=== PATIENT | male | born 1975 | race African-American/Black ===

== ENCOUNTER 2017-12-05 12:55 | Emergency (ER) | payer SELFPAY ==
[~2017-12-05] VITALS: Ht 193 cm; Wt 102.0 kg
[~2017-12-05 12:55] MED LIST: AUGMENTIN875TAB PO; CIPROFLOXACN500 MG PO; IMODIUM2 MG PO; ULTRAM50 MG PO; ZOFRAN4 MG/TAB PO
[2017-12-05] MEDS ORDERED: TORADOL PO (15:09)
[2017-12-05] MEDS ORDERED: FLEXERIL PO (15:09)
[2017-12-05 15:15] VITALS: BP 167/84
== END 2017-12-05 15:15 | disposition home or self-care (01) | DRG 563 ==
LOC: ED 12:55
DX: S39.012A Strain of muscle, fascia and tendon of lower back, initial encounter (principal); F17.210 Nicotine dependence, cigarettes, uncomplicated; X58.XXXA Exposure to other specified factors, initial encounter

== ENCOUNTER 2019-02-27 05:18 | Emergency (ER) | payer SELFPAY ==
[~2019-02-27] VITALS: Ht 188 cm; Wt 163.4 kg
[~2019-02-27 05:18] MED LIST changes: +FLEXERIL PO; +TORADOL PO
[2019-02-27] MEDS ORDERED: MOTRIN400 MG PO (08:48)
[2019-02-27 08:57] VITALS: BP 157/79
== END 2019-02-27 09:06 | disposition home or self-care (01) | DRG 538 ==
LOC: ED 05:18
DX: S76.011A Strain of muscle, fascia and tendon of right hip, initial encounter (principal); M25.551 Pain in right hip; M79.18 Myalgia, other site

== ENCOUNTER 2019-05-15 16:26 | Emergency (ER) | payer SELFPAY ==
[~2019-05-15] VITALS: Ht 188 cm; Wt 143.2 kg
[~2019-05-15 16:26] MED LIST changes: +MOTRIN400 MG PO
[2019-05-15] MEDS ORDERED: FLEXERIL5 MG PO (19:01)
[2019-05-15 19:05] VITALS: BP 148/88
== END 2019-05-15 19:05 | disposition home or self-care (01) ==
LOC: ED 16:26
DX: S46.912A Strain of unspecified muscle, fascia and tendon at shoulder and upper arm level, left arm, initial encounter (principal); F17.210 Nicotine dependence, cigarettes, uncomplicated; X58.XXXA Exposure to other specified factors, initial encounter

== ENCOUNTER 2019-11-12 | Emergency (ER) | payer SELFPAY ==
[~2019-11-12] MED LIST changes: +FLEXERIL5 MG PO
[2019-11-12 12:10] LABS: URINE BILIRUBIN - DIPSTICK NEGATIVE (NEGATIVE); URINE BLOOD DIPSTICK MODERATE (NEGATIVE); URINE COLOR YELLOW; URINE GLUCOSE - DIPSTICK NEGATIVE (NEGATIVE); URINE KETONE NEGATIVE (NEGATIVE); URINE LEUK ESTERASE NEGATIVE (NEGATIVE); URINE NITRITE - DIPSTICK NEGATIVE (Negative); URINE PH 5.5 (4.5-8.0); URINE PROTEIN - DIPSTICK NEGATIVE (NEG-TRACE); URINE SPECIFIC GRAVITY >=1.030; URINE UROBILINOGEN - DIPSTICK 0.2 E.U./dL (0.2)
[2019-11-12 12:13] LABS: URINE MUCUS FEW hpf (NONE-FEW)
== END 2019-11-12 13:09 | disposition home or self-care (01) | DRG 951 ==
DX: Z03.89 Encounter for observation for other suspected diseases and conditions ruled out (principal); F17.210 Nicotine dependence, cigarettes, uncomplicated

== ENCOUNTER 2020-02-06 04:12 | Emergency (ER) | payer SELFPAY ==
[2020-02-06] MEDS ORDERED: CEPHALEXIN500 MG PO (04:53)
[2020-02-06] MEDS ORDERED: MEDDOSEPAK PO (04:53)
[2020-02-06] MEDS ORDERED: BENADRYL 50MG C50 MG PO (04:53)
[2020-02-06 06:00] VITALS: BP 154/90
== END 2020-02-06 06:00 | disposition home or self-care (01) | DRG 916 ==
LOC: ED 04:12
DX: T78.3XXA Angioneurotic edema, initial encounter (principal); S00.262A Insect bite (nonvenomous) of left eyelid and periocular area, initial encounter; L08.9 Local infection of the skin and subcutaneous tissue, unspecified; F17.210 Nicotine dependence, cigarettes, uncomplicated; W57.XXXA Bitten or stung by nonvenomous insect and other nonvenomous arthropods, initial encounter

== ENCOUNTER 2020-12-27 | Emergency (ER) | payer SELFPAY ==
[~2020-12-27] MED LIST changes: +BENADRYL 50MG C50 MG PO; +CEPHALEXIN500 MG PO; +MEDDOSEPAK PO
[2020-12-27] MEDS ORDERED: TRAMADOL HYDROC50 M1 PO (17:55)
== END 2020-12-27 18:10 | disposition home or self-care (01) | DRG 563 ==
PROC: 2W3QX1Z Immobilization of Right Lower Leg using Splint (ICD-10-PCS; principal; 2020-12-27)
DX: S82.64XA Nondisplaced fracture of lateral malleolus of right fibula, initial encounter for closed fracture (principal); I10 Essential (primary) hypertension; F17.210 Nicotine dependence, cigarettes, uncomplicated; X50.0XXA Overexertion from strenuous movement or load, initial encounter; Y93.01 Activity, walking, marching and hiking; Y92.480 Sidewalk as the place of occurrence of the external cause

== ENCOUNTER 2021-04-01 02:05 | Emergency (ER) | payer BC ==
[~2021-04-01] VITALS: Ht 190.5 cm; Wt 154.0 kg
[~2021-04-01 02:05] MED LIST changes: +TRAMADOL HYDROC50 M1 PO
[2021-04-01] MEDS ORDERED: [UNRECOGNIZED DRUG - REMARK] (02:41)
[2021-04-01 03:13] LABS: HEMATOCRIT 43.1 % (39.0-50.0); HEMOGLOBIN 13.1 g/dl (14.0-18.0); IMMATURE GRANULOCYTES 0.4 % (0.0-5.0); MEAN CELL VOLUME 81.6 fL CALC (80.0-100.0); MEAN CORPUSCULAR HGB 24.8 pG CALC (26.0-32.0); MEAN CORPUSCULAR HGB CONC 30.4 g/dL CAL (32.0-36.0); NEUT# 7.14 thou/uL (1.82-7.42); RED BLOOD COUNT 5.28 mill/uL (4.70-6.10); RED CELL DISTRI WIDTH 15.2 % (11.5-15.5)
[2021-04-01 03:33] LABS: ALBUMIN 3.6 g/dL (3.2-5.0); ALKALINE PHOSPHATASE 86 u/l (38-126); AMYLASE 128 u/l (30-110); BUN 14 mg/dL (9-20); BUN/CREATININE RATIO 16 (12-20 (CALC)); CHLORIDE 99 mmol/l (95-108); CREATININE 0.8 mg/dL (0.7-1.3); GFR > 60 ML/MIN (>=60 (CALC)); GFR FOR AFR.AMER. > 60 ML/MIN (>=60 (CALC)); LIPASE 408 u/l (23-300); POTASSIUM 3.8 mmol/l (3.5-5.1); SODIUM 136 mmol/l (137-146); TOTAL PROTEIN 7.4 g/dL (6.3-8.2)
[2021-04-01 03:35] LABS: ANION GAP 8 (6-22 (CALC)); BILIRUBIN, TOTAL 0.8 mg/dL (0.0-1.4); CARBON DIOXIDE 33 mmol/l (22-30); SGOT/AST 400 u/l (17-59)
[2021-04-01 03:46] LABS: MYOGLOBIN 44 ng/mL (0 - 121)
[2021-04-01 07:03] VITALS: BP 143/79
[2021-04-01] MEDS ORDERED: PRILOSEC20 MG/CAP PO (07:06)
== END 2021-04-01 07:11 | disposition home or self-care (01) | DRG 440 ==
LOC: ED 02:05
PROVIDERS: Family Medicine
DX: K85.90 Acute pancreatitis without necrosis or infection, unspecified (principal); I10 Essential (primary) hypertension
CPT/HCPCS: Q9967

== ENCOUNTER 2021-10-13 08:11 | Emergency (ER) | payer OTHER ==
[~2021-10-13] VITALS: Ht 190.5 cm; Wt 160.0 kg
[~2021-10-13 08:11] MED LIST changes: +PRILOSEC20 MG/CAP PO; +[UNRECOGNIZED DRUG - REMARK]
[2021-10-13 09:10] LABS: URINE BILIRUBIN - DIPSTICK NEGATIVE (NEGATIVE); URINE BLOOD DIPSTICK LARGE (NEGATIVE); URINE COLOR YELLOW; URINE GLUCOSE - DIPSTICK NEGATIVE (NEGATIVE); URINE KETONE NEGATIVE (NEGATIVE); URINE LEUK ESTERASE NEGATIVE (NEGATIVE); URINE NITRITE - DIPSTICK NEGATIVE (Negative); URINE PROTEIN - DIPSTICK NEGATIVE (NEG-TRACE); URINE SPECIFIC GRAVITY >=1.030; URINE UROBILINOGEN - DIPSTICK 0.2 E.U./dL (0.2)
[2021-10-13 10:20] LABS: HEMATOCRIT 45.5 % (39.0-50.0); HEMOGLOBIN 13.6 g/dl (14.0-18.0); IMMATURE GRANULOCYTES 0.6 % (0.0-5.0); MEAN CELL VOLUME 82.4 fL CALC (80.0-100.0); MEAN CORPUSCULAR HGB 24.6 pG CALC (26.0-32.0); MEAN CORPUSCULAR HGB CONC 29.9 g/dL CAL (32.0-36.0); NEUT# 6.96 thou/uL (1.82-7.42); RED BLOOD COUNT 5.52 mill/uL (4.70-6.10); RED CELL DISTRI WIDTH 15.7 % (11.5-15.5)
[2021-10-13 10:45] LABS: ALBUMIN 3.8 g/dL (3.2-5.0); ALKALINE PHOSPHATASE 78 u/l (38-126); ANION GAP 13 (6-22 (CALC)); BILIRUBIN, TOTAL 0.4 mg/dL (0.0-1.4); BUN 11 mg/dL (9-20); BUN/CREATININE RATIO 12 (12-20 (CALC)); CARBON DIOXIDE 32 mmol/l (22-30); CHLORIDE 100 mmol/l (95-108); CREATININE 0.9 mg/dL (0.7-1.3); GFR > 60 ML/MIN (>=60 (CALC)); GFR FOR AFR.AMER. > 60 ML/MIN (>=60 (CALC)); POTASSIUM 4.4 mmol/l (3.5-5.1); SGOT/AST 29 u/l (17-59); SODIUM 141 mmol/l (137-146); TOTAL PROTEIN 7.9 g/dL (6.3-8.2)
[2021-10-13] MEDS ORDERED: VOLTAREN1%GEL TOP (10:54)
[2021-10-13] MEDS ORDERED: FLEXERIL5 M1 PO (10:54)
[2021-10-13] MEDS ORDERED: OMNI-PAC300 MG PO (11:11)
[2021-10-13 11:59] VITALS: BP 147/89
== END 2021-10-13 11:59 | disposition home or self-care (01) | DRG 552 ==
LOC: ED 08:11
PROVIDERS: Family Medicine
DX: M54.50 Low back pain, unspecified (principal); R31.9 Hematuria, unspecified; Z68.41 Body mass index [BMI] 40.0-44.9, adult; I10 Essential (primary) hypertension; E66.9 Obesity, unspecified

== ENCOUNTER 2021-11-23 14:55 | Emergency (ER) | payer SELFPAY ==
[~2021-11-23] VITALS: Ht 190.5 cm; Wt 145.0 kg
[~2021-11-23 14:55] MED LIST changes: +FLEXERIL5 M1 PO; +OMNI-PAC300 MG PO; +VOLTAREN1%GEL TOP
[2021-11-23 15:27] LABS: URINE BILIRUBIN - DIPSTICK NEGATIVE (NEGATIVE); URINE BLOOD DIPSTICK LARGE (NEGATIVE); URINE COLOR YELLOW; URINE GLUCOSE - DIPSTICK NEGATIVE (NEGATIVE); URINE KETONE NEGATIVE (NEGATIVE); URINE PROTEIN - DIPSTICK 100 mg/dL (NEG-TRACE); URINE SPECIFIC GRAVITY 1.015
[2021-11-23 15:58] LABS: URINE LEUK ESTERASE SMALL (NEGATIVE); URINE NITRITE - DIPSTICK NEGATIVE (Negative)
[2021-11-23 15:59] LABS: URINE WBC 20-50 WBC/hpf (0-5)
[2021-11-23] MEDS ORDERED: KEFLEX500 MG PO (16:15)
[2021-11-23] MEDS ORDERED: PYRIDIUM200 MG PO (16:15)
[2021-11-23 16:18] VITALS: BP 130/85
== END 2021-11-23 16:28 | disposition home or self-care (01) | DRG 690 ==
LOC: ED 14:55
PROVIDERS: Nurse Practitioner
DX: N30.90 Cystitis, unspecified without hematuria (principal); B96.20 Unspecified Escherichia coli [E. coli] as the cause of diseases classified elsewhere; I10 Essential (primary) hypertension; E66.9 Obesity, unspecified; K21.9 Gastro-esophageal reflux disease without esophagitis; F17.200 Nicotine dependence, unspecified, uncomplicated; Z87.440 Personal history of urinary (tract) infections

== ENCOUNTER 2022-05-22 09:49 | Emergency (ER) | payer SELFPAY ==
[~2022-05-22] VITALS: Ht 190.5 cm; Wt 167.0 kg
[~2022-05-22 09:49] MED LIST changes: +KEFLEX500 MG PO; +PYRIDIUM200 MG PO
[2022-05-22 09:56] VITALS: BP 167/104
[2022-05-22] MEDS ORDERED: CLINDAMYCIN HY300 MG PO (10:11)
== END 2022-05-22 10:24 | disposition home or self-care (01) | DRG 159 ==
LOC: ED 09:49
DX: K08.89 Other specified disorders of teeth and supporting structures (principal); I10 Essential (primary) hypertension; E66.9 Obesity, unspecified

== ENCOUNTER 2022-06-28 05:21 | Emergency (ER) | payer SELFPAY ==
[~2022-06-28] VITALS: Ht 190.5 cm; Wt 145.4 kg
[~2022-06-28 05:21] MED LIST changes: +CLINDAMYCIN HY300 MG PO
[2022-06-28 05:30] VITALS: BP 165/105
[2022-06-28 05:50] LABS: HEMATOCRIT 44.9 % (39.0-50.0); HEMOGLOBIN 13.4 g/dl (14.0-18.0); IMMATURE GRANULOCYTES 0.3 % (0.0-5.0); MEAN CELL VOLUME 82.8 fL CALC (80.0-100.0); MEAN CORPUSCULAR HGB 24.7 pG CALC (26.0-32.0); MEAN CORPUSCULAR HGB CONC 29.8 g/dL CAL (32.0-36.0); NEUT# 7.18 thou/uL (1.82-7.42); RED BLOOD COUNT 5.42 mill/uL (4.70-6.10); RED CELL DISTRI WIDTH 15.6 % (11.5-15.5)
[2022-06-28 05:51] LABS: URINE BILIRUBIN - DIPSTICK NEGATIVE (NEGATIVE); URINE BLOOD DIPSTICK LARGE (NEGATIVE); URINE COLOR YELLOW; URINE GLUCOSE - DIPSTICK NEGATIVE (NEGATIVE); URINE KETONE NEGATIVE (NEGATIVE); URINE PH 6.5 (4.5-8.0); URINE PROTEIN - DIPSTICK NEGATIVE (NEG-TRACE); URINE UROBILINOGEN - DIPSTICK 0.2 E.U./dL (0.2)
[2022-06-28 05:52] LABS: URINE LEUK ESTERASE LARGE (NEGATIVE); URINE NITRITE - DIPSTICK POSITIVE (Negative)
[2022-06-28 05:59] LABS: URINE BACTERIA MANY hpf; URINE SQUAMOUS EPITHELIAL CELL FEW EPI/hpf (0-FEW); URINE WBC 20-50 WBC/hpf (0-5)
[2022-06-28 06:02] LABS: ALKALINE PHOSPHATASE 86 u/l (38-126); ANION GAP 9 (6-22 (CALC)); BILIRUBIN, TOTAL 0.2 mg/dL (0.0-1.4); BUN 10 mg/dL (9-20); BUN/CREATININE RATIO 13 (12-20 (CALC)); CARBON DIOXIDE 29 mmol/l (22-30); CHLORIDE 104 mmol/l (95-108); CREATININE 0.7 mg/dL (0.7-1.3); GFR FOR AFR.AMER. > 60 ML/MIN (>=60 (CALC)); GFR OTHER RACES > 60 ML/MIN (>=60 (CALC)); POTASSIUM 4.4 mmol/l (3.5-5.1); SGOT/AST 30 u/l (17-59); SODIUM 138 mmol/l (137-146)
[2022-06-28] MEDS ORDERED: BACTRIM DS1 TAB PO (06:21)
[2022-06-28 06:24] VITALS: BP 165/105
== END 2022-06-28 06:27 | disposition home or self-care (01) | DRG 690 ==
LOC: ED 05:21
PROVIDERS: Family Medicine
DX: N39.0 Urinary tract infection, site not specified (principal); B96.20 Unspecified Escherichia coli [E. coli] as the cause of diseases classified elsewhere

== ENCOUNTER 2024-08-28 10:09 | Emergency (ER) | payer OTHER ==
[~2024-08-28] VITALS: Ht 188 cm; Wt 136.0 kg
[2024-08-28] VITALS (8 sets, daily range): BP systolic 150–180; BP diastolic 80–104
[~2024-08-28 10:09] MED LIST changes: +ASPIRIN ADULT L81 M2 PO; +BACTRIM DS1 TAB PO; +CVS OMEPRAZOLE20 MG PO; +LIPITOR10 M1 PO; +LISINOPRIL10 MG PO; +LISINOPRIL20 M1 PO; +METFORMIN HCL500 M3 PO; +MIRALAX17 GM PO; +RYBELSUS3 MG PO; +RYBELSUS7 MG PO; +[UNRECOGNIZED DRUG - SUPPLY]
[2024-08-28] MEDS ORDERED: SODIUM CHLORIDE 0.9% 1,000 ML IV ONE (10:25)
[2024-08-28] MEDS ORDERED: KETOROLAC TROMETHAMINE 30 MG/ML SDV IV ONE (10:25)
[2024-08-28 10:44] LABS: BASO% 0.5 % (0-3); EOS% 2.2 % (0-8); HEMATOCRIT 45.1 % (39.0-50.0); HEMOGLOBIN 13.5 g/dl (14.0-18.0); IMMATURE GRANULOCYTES 0.5 % (0.0-5.0); LYMPH% 15.3 % (15-41); MEAN CELL VOLUME 83.1 fL CALC (80.0-100.0); MEAN CORPUSCULAR HGB 24.9 pG CALC (26.0-32.0); MEAN CORPUSCULAR HGB CONC 29.9 g/dL CAL (32.0-36.0); MONO% 18.7 % (2-13); NEUT# 5.22 thou/uL (1.82-7.42); NEUT% 62.8 % (42-76); RED BLOOD COUNT 5.43 mill/uL (4.70-6.10); RED CELL DISTRI WIDTH 15.2 % (11.5-15.5)
[2024-08-28 11:00] LABS: ALBUMIN 4.6 g/dL (3.2-5.0); BILIRUBIN, TOTAL 0.6 mg/dL (0.2-1.3); CREATININE 0.9 mg/dL (0.7-1.3); POTASSIUM 4.5 mmol/l (3.5-5.1); TOTAL PROTEIN 9.1 g/dL (6.3-8.2)
== END 2024-08-28 12:18 | disposition home or self-care (01) | DRG 153 ==
LOC: ED 10:09
PROVIDERS: Family Medicine
DX: J06.9 Acute upper respiratory infection, unspecified (principal); I10 Essential (primary) hypertension; E11.9 Type 2 diabetes mellitus without complications; E78.00 Pure hypercholesterolemia, unspecified; F17.200 Nicotine dependence, unspecified, uncomplicated; Z20.822 Contact with and (suspected) exposure to COVID-19